=== PATIENT | female | born 1930 | race Caucasian/White ===

== ENCOUNTER 2017-04-19 19:58 | Emergency (ER) | payer MEDICARE ==
[~2017-04-19 19:58] MED LIST: AMLO5TAB22 PO; ASPI81TA82 PO
[2017-04-19 20:03] VITALS: BP 113/63; PULSE 94; RESP 20; O2SAT 92
[2017-04-19 20:05] VITALS: O2SAT 92
[2017-04-19] MEDS ORDERED: SODIUM CHLOR 0.9% 1000 ML INJ 1,000 ML IV SCH ×2 (20:10→22:15)
[2017-04-19] MEDS ORDERED: SODIUM CHLORIDE 0.9% FLUSH 10 ML FLUSH IV FLUSH PRN (20:15)
[2017-04-19] MEDS ORDERED: SODIUM CHLORIDE 0.9% FLUSH 10 ML FLUSH IVF PRN (20:15)
--- NOTE | 2017-04-19 20:41 | RADRPT ---
EXAM DATE/TIME: 04/19/2017 20:18 [facility] COMPARISON: CHEST PA & LAT, May 24, 2015, 0:59. INDICATIONS : Shortness of breath. MEDICAL HISTORY : Hypertension. SURGICAL HISTORY : None. ENCOUNTER: Initial ACUITY: 1 day PAIN SCORE: 0/10 LOCATION: Bilateral chest FINDINGS: No ultra, effusion or pneumothorax demonstrated. Heart size stable, then normal limits. Very tortuous thoracic aorta again noted. Osteoarthritis of both glenohumeral joints again noted. CONCLUSION: No evidence of acute cardiopulmonary disease. Tee Klein MD on April 19, 2017 at 20:38 Board Certified Radiologist. This report was verified electronically.
[2017-04-19 20:45] LABS: CHLORIDE 101 MEQ/L (98-107); SODIUM (NA) 138 MEQ/L (136-145)
[2017-04-19 20:49] LABS: ALBUMIN 3.1 GM/DL (3.4-5.0); BICARBONATE 29.1 MEQ/L (21.0-32.0); BLOOD UREA NITROGEN 19 MG/DL (7-18); CALCIUM 9.2 MG/DL (8.5-10.1); GLUCOSE,RANDOM 95 MG/DL (74-106); LIPASE 126 U/L (73-393)
[2017-04-19 20:50] LABS: AUTOMATED NEUTROPHIL # 8.1 TH/MM3 (1.8-7.7); BASOPHIL # 0.2 TH/MM3 (0-0.2); BASOPHIL % 1.9 % (0.0-2.0); EOSINOPHIL # 0.1 TH/MM3 (0-0.4); EOSINOPHIL % 0.8 % (0.0-4.0); HEMATOCRIT 41.2 % (35.0-46.0); HEMOGLOBIN 13.3 GM/DL (11.6-15.3); LYMPH % 23.2 % (9.0-44.0); LYMPHOCYTE # 2.9 TH/MM3 (1.0-4.8); MEAN CORPUSCULAR HEMOGLOBIN 28.4 PG (27.0-34.0); MEAN CORPUSCULAR HGB CONC 32.3 % (32.0-36.0); MEAN PLATELET VOLUME 8.8 FL (7.0-11.0); MONO % 11.1 % (0.0-8.0); MONOCYTE # 1.4 TH/MM3 (0-0.9); PLATELET COUNT 301 TH/MM3 (150-450); RED BLOOD COUNT 4.68 MIL/MM3 (4.00-5.30); WHITE BLOOD COUNT 12.7 TH/MM3 (4.0-11.0)
[2017-04-19 20:52] LABS: ALT (GPT) 18 U/L (10-53); AST (GOT) 18 U/L (15-37); GLOMERULAR FILTRATION RATE 43 ML/MIN (>89)
[2017-04-19 20:54] LABS: TOTAL BILIRUBIN ADULT 0.7 MG/DL (0.2-1.0); TOTAL PROTEIN 7.8 GM/DL (6.4-8.2)
[2017-04-19 20:55] LABS: ALKALINE PHOSPHATASE 63 U/L (45-117)
--- NOTE | 2017-04-19 21:40 | PD ---
HPI Chief Complaint: Cold / Flu Symptoms Time Seen by Provider: 20:10 Travel History International Travel<30 days: No Contact w/Intl Traveler<30days: No Traveled to known affect area: No History of Present Illness HPI The patient is an 86-year-old female that had generalized, nonfocal, weakness and dizziness. The patient has had dementia which has been gradually worsening over the last year or so but possibly worse in the last few days. The patient' s son initially was concerned that she was having a stroke. The patient has had a hacking/moist cough. She denies any fever. PFSH Past Medical History High Cholesterol: Yes Hypertension: Yes ?: Not Menopausal: Yes Past Surgical History Appendectomy: Yes Section: Yes (TWO) Hysterectomy: Yes Social History Alcohol Use: Yes (OCCASSIONAL GLASS OF WINE) Tobacco Use: No Substance Use: No Allergies-Medications (Allergen,Severity, Reaction): Coded Allergies: penicillin G (Unverified Allergy, Intermediate, HIVES, 11/18/16) Reported Meds & Prescriptions Reported Meds & Active Scripts Active Review of Systems ROS Limitations: Poor Historian Except as stated in HPI: all other systems reviewed are Neg Physical Exam Narrative GENERAL: The patient is alert and will answer questions but is confused as to date. She cannot answer a lot of questions about her medical conditions. Her vital signs are normal. She does appear mildly dehydrated. SKIN: Focused skin assessment warm/dry. No skin rash is seen. HEAD: Atraumatic. Normocephalic. EYES: Pupils equal and round. No scleral icterus. No injection or drainage. ENT: No nasal bleeding or discharge. Mucous membranes pink and moist. NECK: Trachea midline. No JVD. CARDIOVASCULAR: Regular rate and rhythm. No murmur appreciated. RESPIRATORY: No accessory muscle use. Clear to auscultation. Breath sounds equal bilaterally. GASTROINTESTINAL: Abdomen soft, non-tender, nondistended. Hepatic and splenic margins not palpable. No guarding or rebound is present. MUSCULOSKELETAL: No obvious deformities. No clubbing. No cyanosis. No edema. NEUROLOGICAL: Awake and alert. No obvious cranial nerve deficits. Motor grossly within normal limits. Normal speech. PSYCHIATRIC: The patient appears to have mild dementia; insight and judgment normal. Data Data Last Documented VS Vital Signs Date Time Temp Pulse Resp B/P (MAP) Pulse Ox O2 Delivery O2 Flow Rate FiO2 04/19/17 22:07 76 98 Nasal Cannula 2.00 04/19/17 20:03 20 113/63 (80) Orders Orders Complete Blood Count With Diff (04/19/17 20:10) Comprehensive Metabolic Panel (04/19/17 20:10) Lipase (04/19/17 20:10) Urinalysis - C+S If Indicated (04/19/17 20:10) Iv Access Insert/Monitor (04/19/17 20:10) Ecg Monitoring (04/19/17 20:10) Oximetry (04/19/17 20:10) Sodium Chlor 0.9% 1000 Ml Inj (Ns 1000 M (04/19/17 20:10) Sodium Chloride 0.9% Flush (Ns Flush) (04/19/17 20:15) Influenzae A/B Antigen (04/19/17 20:10) Chest, Pa & Lat (04/19/17 20:10) Sodium Chloride 0.9% Flush (Ns Flush) (04/19/17 20:15) Ct Brain W/O Iv Contrast(Rout) (04/19/17 20:49) Sodium Chlor 0.9% 1000 Ml Inj (Ns 1000 M (04/19/17 22:15) Urine Culture (04/19/17 22:54) Labs Laboratory Tests Test 04/19/17 20:10 04/19/17 22:18 White Blood Count 12.7 TH/MM3 Red Blood Count 4.68 MIL/MM3 Hemoglobin 13.3 GM/DL Hematocrit 41.2 % Mean Corpuscular Volume 88.0 FL Mean Corpuscular Hemoglobin 28.4 PG Mean Corpuscular Hemoglobin Concent 32.3 % Red Cell Distribution Width 13.0 % Platelet Count 301 TH/MM3 Mean Platelet Volume 8.8 FL Neutrophils (%) (Auto) 63.0 % Lymphocytes (%) (Auto) 23.2 % Monocytes (%) (Auto) 11.1 % Eosinophils (%) (Auto) 0.8 % Basophils (%) (Auto) 1.9 % Neutrophils # (Auto) 8.1 TH/MM3 Lymphocytes # (Auto) 2.9 TH/MM3 Monocytes # (Auto) 1.4 TH/MM3 Eosinophils # (Auto) 0.1 TH/MM3 Basophils # (Auto) 0.2 TH/MM3 CBC Comment DIFF FINAL Differential Comment Blood Urea Nitrogen 19 MG/DL Creatinine 1.20 MG/DL Random Glucose 95 MG/DL Total Protein 7.8 GM/DL Albumin 3.1 GM/DL Calcium Level 9.2 MG/DL Alkaline Phosphatase 63 U/L Aspartate Amino Transf (AST/SGOT) 18 U/L Alanine Aminotransferase (ALT/SGPT) 18 U/L Total Bilirubin 0.7 MG/DL Sodium Level 138 MEQ/L Potassium Level 3.7 MEQ/L Chloride Level 101 MEQ/L Carbon Dioxide Level 29.1 MEQ/L Anion Gap 8 MEQ/L Estimat Glomerular Filtration Rate 43 ML/MIN Lipase 126 U/L Urine Color YELLOW Urine Turbidity CLEAR Urine pH 6.0 Urine Specific [place] 1.021 Urine Protein NEG mg/dL Urine Glucose (UA) NEG mg/dL Urine Ketones TRACE mg/dL Urine Occult Blood NEG Urine Nitrite NEG Urine Bilirubin NEG Urine Leukocyte Esterase SMALL Urine RBC 0-3 /hpf Urine WBC 6-8 /hpf Urine Squamous Epithelial Cells 0-5 /hpf Urine Hyaline Casts 3-5 /lpf Urine Mucus MOD /lpf Microscopic Urinalysis Comment CULT NOT INDICATED MDM Medical Decision Making Medical Screen Exam Complete: Yes Emergency Medical Condition: Yes Medical Record Reviewed: Yes Interpretation(s) The chest x-ray shows no evidence of acute cardiopulmonary disease. The CT brain shows no acute abnormality. It does show atrophy and chronic white matter changes. The CBC shows a white counts of 12,700 but is otherwise unremarkable. The complete metabolic profile shows a BUN of 19 with creatinine 1.2 and GFR of 43 and albumen 3.1 but is otherwise normal. The lipase is normal. The urine shows clear turbidity with trace ketones and small leukocyte esterase and 6-8 white cells. Differential Diagnosis Dehydration, cystitis, ischemic CVA-hilar and likely, hypo-/hyperglycemia, electrolyte disorder Narrative Course At approximately 10:30 PM the patient got up and ripped her IV out and said she did not need the IV. She is able to drink liquids and is currently drinking fluids without a problem. The patient has 6-8 white cells in the urine along with a positive leukocyte esterase. She will be put on Macrobid 100 mg twice daily for 7 days. She needs to follow-up next week with her primary care physician. The slightly elevated BUN suggest mild dehydration. Diagnosis Primary Impression: UTI (urinary tract infection) Additional Impression: Mild dehydration Additional Instructions: The antibiotic is twice daily for 7 days. Drink plenty of liquids. There is clinical evidence that you were dehydrated today. Med/Other Pt SpecificInfo: Prescription(s) given Scripts Nitrofurantoin Monohydrate Macrocrystals (Macrobid) 100 Mg Capsule 100 MG PO BID for Infection for 7 Days, #14 CAP 0 Refills Prov: Miles Melendez MD 04/19/17 Disposition: 01 DISCHARGE HOME Condition: Stable Miles Melendez MD Apr 19, 2017 21:40
--- NOTE | 2017-04-19 21:51 | RADRPT ---
EXAM DATE/TIME: 04/19/2017 21:15 [facility] COMPARISON: No previous studies available for comparison. INDICATIONS : Dizziness. Altered mental status. RADIATION DOSE: 59.60 CTDIvol (mGy) MEDICAL HISTORY : Hypertension. Dementia. SURGICAL HISTORY : None. ENCOUNTER: Initial ACUITY: 1 day PAIN SCALE: 0/10 LOCATION: cranial TECHNIQUE: Multiple contiguous axial images were obtained of the head. Using automated exposure control and adj ustment of the mA and/or kV according to patient size, radiation dose was kept as low as reasonably a chievable to obtain optimal diagnostic quality images. DICOM format image data is available electro nically for review and comparison. FINDINGS: CEREBRUM: The ventricles are normal for age. No evidence of midline shift, mass lesion, hemorrhage or acute in farction. No extra-axial fluid collections are seen. Atrophy present. There is chronic appearing dif fuse low attenuation in the periventricular white matter. POSTERIOR FOSSA: The cerebellum and brainstem are intact. The 4th ventricle is midline. The cerebellopontine angle i s unremarkable. EXTRACRANIAL: The visualized portion of the orbits is intact. SKULL: The calvaria is intact. No evidence of skull fracture. CONCLUSION: No acute intracranial abnormality. Atrophy and chronic white matter changes. Tee Klein MD on April 19, 2017 at 21:47 Board Certified Radiologist. This report was verified electronically.
[2017-04-19 22:33] LABS: BILIRUBIN, URINE NEG (NEG); BLOOD, URINE NEG (NEG); GLUCOSE,URINE NEG (NEG); KETONE, URINE TRACE mg/dL (NEG); NITRITE,URINE NEG (NEG); URINE LEUKOCYTE ESTERASE SMALL (NEG)
[2017-04-19 22:42] LABS: MUCUS URINE MOD /lpf (OCC); URINE COLOR YELLOW (YELLW/STRAW)
[2017-04-19 22:43] LABS: SQUAMOUS EPITHELIAL CELL URINE 0-5 /hpf (0-5)
[2017-04-19 22:44] LABS: RBC, URINE 0-3 /hpf (0-3)
[2017-04-19] MEDS ORDERED: MACR100C2 PO (22:59)
[2017-04-19 23:09] VITALS: BP 149/77; PULSE 94; RESP 18; TEMP 98; O2SAT 96
[2017-04-19] MEDS ORDERED: NITROFURANTOIN MONOHYD MACROCR 100 MG CAP PO ONE (23:15)
== END 2017-04-19 23:26 | disposition home or self-care (01) ==
LOC: PHED 19:58
DX: N39.0 Urinary tract infection, site not specified (principal); E86.0 Dehydration; B96.89 Other specified bacterial agents as the cause of diseases classified elsewhere; F03.90 Unspecified dementia, unspecified severity, without behavioral disturbance, psychotic disturbance, mood disturbance, and anxiety; E78.00 Pure hypercholesterolemia, unspecified; I10 Essential (primary) hypertension; Z88.0 Allergy status to penicillin
CPT/HCPCS: 70450; 71046; 80053; 81001; 83690; 85025; 87086; 87804; 96360; 99285; J7030